=== PATIENT | male | born 1975 | race Caucasian/White ===

== ENCOUNTER 2018-09-03 17:58 | Emergency (ER) | payer SELFPAY ==
[2018-09-03 18:15] VITALS: BP 104/68; PULSE 88; RESP 20; TEMP 98.4; O2SAT 97
--- NOTE | 2018-09-03 19:34 | C.PDOC ---
History Of Present Illness 43 y/o male presents to the ER complaining of rash to torso and bilateral arms which has been present for the past 1 week. Patient states that he tried some ointment without relief. Patient reports that his family members do not have rash. Denies having fever,chills,, CP,SOB, nausea, and vomiting. Time Seen by Provider: 09/03/18 19:13 Chief Complaint (Nursing): Abnormal Skin Integrity History Per: Patient History/Exam Limitations: no limitations Onset/Duration Of Symptoms: Days Current Symptoms Are (Timing): Still Present Severity: Moderate Past Medical History Reviewed: Historical Data, Nursing Documentation, Vital Signs Vital Signs: Last Vital Signs Temp 98.4 F 09/03/18 18:13 Pulse 88 09/03/18 18:13 Resp 20 09/03/18 18:13 BP 104/68 09/03/18 18:13 Pulse Ox 97 09/03/18 18:13 - Medical History PMH: No Chronic Diseases Surgical History: No Surg Hx Family History: States: No Known Family Hx - Social History Hx Alcohol Use: No Hx Substance Use: No - Immunization History Hx Tetanus Toxoid Vaccination: No Hx Influenza Vaccination: No Hx Pneumococcal Vaccination: No Review Of Systems Constitutional: Negative for: Fever, Chills Cardiovascular: Negative for: Chest Pain Respiratory: Negative for: Shortness of Breath Skin: Positive for: Rash Physical Exam - Physical Exam Appears: Non-toxic, No Acute Distress Skin: Warm, Dry, Rash (diffuse papular rash with some linear arrangements to torso and bilateral arms, no vesicles, no apparent burrows or tracks) Head: Atraumatic, Normacephalic Eye(s): bilateral: Normal Inspection Nose: Normal Oral Mucosa: Moist Tongue: No Swelling Lips: No Swelling Throat: Normal (no swelling or injection), No Erythema, No Exudate, Other (airway patent) Cardiovascular: Rhythm Regular Respiratory: Normal Breath Sounds, No Rales, No Rhonchi, No Wheezing Neurological/Psych: Oriented x3, Normal Speech ED Course And Treatment O2 Sat by Pulse Oximetry: 97 (RA) Pulse Ox Interpretation: Normal Medical Decision Making Medical Decision Making: Patient has been discharged with prescription for Permethrin. Patient has been instructed to follow up in [facility]. Disposition Counseled Patient/Family Regarding: Diagnosis, Need For Followup - Disposition Referrals: [facility] [Outside] Disposition: HOME/ ROUTINE Disposition Time: 19:32 Condition: STABLE Prescriptions: Permethrin [Lice Killing] 240 ml TP ONCE #1 bottle Instructions: Scabies (DC) Forms: [facility] (Niuean), General Discharge Instructions - Clinical Impression Clinical Impression: Scabies - PA / ALUMINIZER / Resident Statement MD/DO has reviewed & agrees with the documentation as recorded. - Scribe Statement The provider has reviewed the documentation as recorded by the Casimiroiburiel Soto Provider Attestation All medical record entries made by the Casimiroiburiel were at my direction and personally dictated by me. I have reviewed the chart and agree that the record accurately reflects my personal performance of the history, physical exam, medical decision making, and the department course for this patient. I have also personally directed, reviewed, and agree with the discharge instructions and disposition.
== END 2018-09-03 19:43 | disposition home or self-care (01) ==
LOC: C.ER 17:58
DX: B86 Scabies (principal)